=== PATIENT | female | born 1945 | race Caucasian/White ===

== ENCOUNTER 2018-03-19 05:12 | Observation (INO) | payer BC ==
[2018-03-19 06:50] LABS: ADD MAN DIFF? NO
[2018-03-19] MEDS: morphine 4 MG/ML VIAL IV (06:50)
[2018-03-19] MEDS: ASPIRIN 81 MG TAB PO (06:50)
[2018-03-19 06:52] LABS: BASOPHILS % 0.6 % (0.0-2.0); EOSINOPHILS # 0.1 10^3/ul (0.0-0.5); EOSINOPHILS % 1.4 % (0.0-7.0); HEMATOCRIT 38.1 % (37.0-47.0); HEMOGLOBIN 12.7 g/dl (12.0-16.0); LYMPHOCYTES # 1.4 10^3/ul (0.8-2.9); LYMPHOCYTES % 20.5 % (15.0-51.0); MEAN CORPUSCULAR HEMOGLOBIN 32.4 pg (29.0-33.0); MEAN CORPUSCULAR HGB CONC 33.3 g/dl (32.0-37.0); MEAN CORPUSCULAR VOLUME 97.2 fl (82.0-101.0); MEAN PLATELET VOLUME 10.1 fl (7.4-10.4); MONOCYTE # 0.4 10^3/ul (0.3-0.9); MONOCYTES % 5.9 % (0.0-11.0); NEUTROPHILS % 71.3 % (39.0-77.0); PLATELET COUNT 221 10^3/UL (140-415); RED BLOOD COUNT 3.92 10^6/ul (4.20-5.40); RED CELL DISTRIBUTION WIDTH 13.8 % (11.5-14.5)
[2018-03-19 07:13] LABS: ANION GAP 12 (8-16); BLOOD UREA NITROGEN 23 mg/dl (7-20); CALCIUM 9.5 mg/dl (8.4-10.2); CARBON DIOXIDE 30 mmol/L (21-31); CHLORIDE 103 mmol/L (97-110); CREATININE 0.63 mg/dl (0.44-1.00); GLUCOSE 112 mg/dl (70-220); POTASSIUM 3.9 mmol/L (3.5-5.1); SODIUM 141 mmol/L (135-144)
[2018-03-19 07:24] LABS: TROPONIN-I < 0.010 ng/ml (0.000-0.120)
[2018-03-19] MEDS ORDERED: ONDANSETRON 4 MG INJ IV ×2 (09:00)
[2018-03-19] MEDS ORDERED: DOCUSATE SODIUM 100 MG CAP PO (09:00)
[2018-03-19] MEDS ORDERED: BISACODYL 10 MG SUPP PR (09:00)
[2018-03-19] MEDS ORDERED: ACETAMINOPHEN 650 MG SUPP PR (09:00)
[2018-03-19] MEDS ORDERED: NACL 0.9% 3 ML SYG IV (09:00)
[2018-03-19] MEDS ORDERED: NITROGLYCERIN (SL) 0.4 MG TAB SL (09:00)
[2018-03-19] MEDS ORDERED: morphine 2 MG INJ IV (09:00)
[2018-03-19] MEDS ORDERED: MAGNESIUM HYDROXIDE 30ML CUP PO (09:00)
[2018-03-19] MEDS ORDERED: ACETAMINOPHEN 325 MG TAB PO (09:00)
[2018-03-19] MEDS ORDERED: HYDROCODONE/APAP (5/325) TAB PO ×2 (09:00)
[2018-03-19 10:02] LABS: CREATINE KINASE 70 IU/L (23-200)
[2018-03-19 10:15] LABS: CK INDEX 1.1; CK-MB 0.74 ng/ml (0.0-2.4); TROPONIN-I < 0.010 ng/ml (0.000-0.120)
[2018-03-19 16:58] LABS: CREATINE KINASE 64 IU/L (23-200)
[2018-03-19 17:11] LABS: CK-MB 0.62 ng/ml (0.0-2.4); TROPONIN-I < 0.010 ng/ml (0.000-0.120)
[2018-03-19] MEDS: FLUTICASONE/VILANTEROL 100-25 INH (18:32)
[2018-03-19] MEDS: ATORVASTATIN 40 MG TAB PO (20:24)
[2018-03-19] MEDS: MONTELUKAST 10 MG TAB PO (20:24)
[2018-03-19] MEDS: RANITIDINE 150 MG TAB PO (20:24)
[2018-03-20 05:42] LABS: ADD MAN DIFF? NO
[2018-03-20 06:03] LABS: WHITE BLOOD COUNT 5.2 10^3/ul (4.8-10.8)
[2018-03-20 06:03] LABS: BASOPHILS % 0.8 % (0.0-2.0); EOSINOPHILS # 0.1 10^3/ul (0.0-0.5); EOSINOPHILS % 1.5 % (0.0-7.0); HEMATOCRIT 36.3 % (37.0-47.0); LYMPHOCYTES # 1.7 10^3/ul (0.8-2.9); LYMPHOCYTES % 32.2 % (15.0-51.0); MEAN CORPUSCULAR HEMOGLOBIN 32.3 pg (29.0-33.0); MEAN CORPUSCULAR HGB CONC 33.1 g/dl (32.0-37.0); MEAN CORPUSCULAR VOLUME 97.8 fl (82.0-101.0); MEAN PLATELET VOLUME 10.7 fl (7.4-10.4); MONOCYTE # 0.4 10^3/ul (0.3-0.9); MONOCYTES % 8.3 % (0.0-11.0); PLATELET COUNT 198 10^3/UL (140-415); RED BLOOD COUNT 3.71 10^6/ul (4.20-5.40); RED CELL DISTRIBUTION WIDTH 13.9 % (11.5-14.5)
[2018-03-20 06:35] LABS: ALANINE AMINOTRANSFERASE 30 IU/L (13-69); ALBUMIN 3.6 g/dl (3.3-4.9); ALBUMIN/GLOBULIN RATIO 1.71; ALKALINE PHOSPHATASE 61 IU/L (42-121); ANION GAP 10 (8-16); ASPARTATE AMINO TRANSFERASE 22 IU/L (15-46); BILIRUBIN,INDIRECT 0.7 mg/dl (0-1.1); BILIRUBIN,TOTAL 0.7 mg/dl (0.2-1.3); BLOOD UREA NITROGEN 18 mg/dl (7-20); CALCIUM 9.4 mg/dl (8.4-10.2); CARBON DIOXIDE 30 mmol/L (21-31); CHLORIDE 106 mmol/L (97-110); CHOL/HDL RATIO 2.8 RATIO; CHOLESTEROL 141 mg/dl (100-200); CREATININE 0.64 mg/dl (0.44-1.00); GLUCOSE 104 mg/dl (70-220); HDL CHOLESTEROL 49 mg/dl (33-92); LDL CHOLESTEROL,CALCULATED 58 mg/dl; MAGNESIUM 1.8 mg/dl (1.7-2.5); PHOSPHORUS 4.3 mg/dl (2.5-4.9); POTASSIUM 4.6 mmol/L (3.5-5.1); SODIUM 141 mmol/L (135-144); TOTAL PROTEIN 5.7 g/dl (6.1-8.1); TRIGLYCERIDES 172 mg/dl (0-149)
[2018-03-20] MEDS: PANTOPRAZOLE 40 MG INJ IV (06:49)
[2018-03-20] MEDS: LEVOTHYROXINE 50 MCG TAB PO (06:49)
[2018-03-20 06:52] LABS: HEMOGLOBIN A1C 5.8 % (0-5.9)
[2018-03-20 06:54] LABS: FREE THYROXINE INDEX (Calc) 2.31 ug/ml (0.65-3.89); T3 UPTAKE 36.1 % (23.5-40.5); T4 (THYROXINE) 6.4 ug/dl (5.5-11.0)
[2018-03-20] MEDS: FLUTICASONE/VILANTEROL 100-25 INH (08:48)
[2018-03-20] MEDS: ACETAMINOPHEN 325 MG TAB PO ×2 (10:08→17:54)
[2018-03-20] MEDS: FISH OIL 1,000 MG CAP PO (11:12)
[2018-03-20] MEDS: SERTRALINE 50 MG TAB PO (11:12)
[2018-03-20] MEDS: CHOLECALCIFEROL 1,000 UNIT TAB PO (11:13)
[2018-03-20] MEDS: LORATADINE 10 MG TAB PO (11:13)
[2018-03-20] MEDS: ASPIRIN 81 MG TAB PO (11:13)
[2018-03-20] MEDS: REGADENOSON 0.4 MG/5 ML SYG (13:50)
== END 2018-03-20 18:45 | disposition home or self-care (01) ==
LOC: E/R 05:12 → 6WM 08:54
DX: R07.9 Chest pain, unspecified (principal); I10 Essential (primary) hypertension; I44.7 Left bundle-branch block, unspecified; E78.5 Hyperlipidemia, unspecified; E03.9 Hypothyroidism, unspecified; F99 Mental disorder, not otherwise specified
CPT/HCPCS: 36415; 71045; 78452; 80048; 80053; 80061; 82550; 82553; 83036; 83735; 84100; 84436; 84443; 84479; 84484; 85025; 93005; 93017; 93306; 96374; 99285-25; G0378

== ENCOUNTER 2018-10-15 18:30 | Emergency (ER) | payer BC ==
[2018-10-15] MEDS: ALPRAZOLAM 0.25 MG TAB PO (23:34)
[2018-10-15] MEDS: MECLIZINE 12.5 MG TAB PO (23:35)
[2018-10-15 23:42] LABS: WHITE BLOOD COUNT 6.2 10^3/ul (4.8-10.8)
[2018-10-15 23:42] LABS: ADD MAN DIFF? NO; BASOPHILS % 0.3 % (0.0-2.0); EOSINOPHILS # 0.1 10^3/ul (0.0-0.5); HEMATOCRIT 39.6 % (37.0-47.0); HEMOGLOBIN 13.1 g/dl (12.0-16.0); LYMPHOCYTES # 2.2 10^3/ul (0.8-2.9); LYMPHOCYTES % 34.5 % (15.0-51.0); MEAN CORPUSCULAR HEMOGLOBIN 31.5 pg (29.0-33.0); MEAN CORPUSCULAR HGB CONC 33.1 g/dl (32.0-37.0); MEAN CORPUSCULAR VOLUME 95.2 fl (82.0-101.0); MEAN PLATELET VOLUME 10.2 fl (7.4-10.4); MONOCYTE # 0.4 10^3/ul (0.3-0.9); MONOCYTES % 5.8 % (0.0-11.0); NEUTROPHIL # 3.6 10^3/ul (1.6-7.5); NEUTROPHILS % 58.1 % (39.0-77.0); PLATELET COUNT 246 10^3/UL (140-415); RED BLOOD COUNT 4.16 10^6/ul (4.20-5.40)
[2018-10-15 23:59] LABS: ANION GAP 11 (5-13); BLOOD UREA NITROGEN 19 mg/dl (7-20); CARBON DIOXIDE 27 mmol/L (21-31); CHLORIDE 100 mmol/L (97-110); CREATININE 0.46 mg/dl (0.44-1.00); GLUCOSE 109 mg/dl (70-220); POTASSIUM 3.9 mmol/L (3.5-5.1); SODIUM 138 mmol/L (135-144)
[2018-10-16 00:11] LABS: TROPONIN-I < 0.012 ng/ml (0.000-0.120)
[2018-10-16 00:30] LABS: INR 0.87; PROTIME 11.9 Sec (11.9-14.9); PT RATIO 0.9
[2018-10-16 00:31] LABS: PARTIAL THROMBOPLASTIN TIME 29.1 Sec (23.0-35.0)
== END 2018-10-16 02:18 | disposition home or self-care (01) ==
LOC: E/R 18:30
DX: R42 Dizziness and giddiness (principal); R40.2352 Coma scale, best motor response, localizes pain, at arrival to emergency department; R40.2252 Coma scale, best verbal response, oriented, at arrival to emergency department; R40.2142 Coma scale, eyes open, spontaneous, at arrival to emergency department; I10 Essential (primary) hypertension; J45.909 Unspecified asthma, uncomplicated; F41.9 Anxiety disorder, unspecified; E03.9 Hypothyroidism, unspecified; R07.9 Chest pain, unspecified; Z79.82 Long term (current) use of aspirin; Z87.891 Personal history of nicotine dependence
CPT/HCPCS: 36415; 70450; 80048; 84484; 85025; 85610; 85730; 93005; 99285-25